=== PATIENT | male | born 1975 | race African-American/Black ===

== ENCOUNTER 2018-03-21 13:26 | Emergency (ER) | payer MEDICAID, OTHER ==
[2018-03-21] MEDS: KETOROLAC TROMETHAMINE 10 MG TAB PO ×2 (15:25)
== END 2018-03-21 15:33 | disposition home or self-care (01) ==
LOC: M ED 13:26
DX: M65.4 Radial styloid tenosynovitis [de Quervain] (principal)
CPT/HCPCS: 99284